=== PATIENT | female | born 1975 | race Caucasian/White ===

== ENCOUNTER → 2019-05-27 09:13 | Outpatient (CLI) | payer OTHER, SELFPAY ==
--- NOTE | ~2019-05-27 | DEXA_ITS ---
Bone Density Report Name: Chuyita Shepard Age: 44 Sex: Female Ethnicity: White Date of : 1975 Indication: Depo-provera exterminator termite therapy Referring Provider: FLOR EVANGELISTA Study: Bone densitometry was performed. Exam Date: May 27, 2019 Accession number: [id number] Bone Density: Region BMD T-score Z-score Classification AP Spine (L1-L4) 0.861 -1.7 -1.2 Osteopenia Femoral Neck (Left) 0.713 -1.2 -0.8 Osteopenia Total Hip (Left) 0.793 -1.2 -0.9 Osteopenia Femoral Neck (Right) 0.727 -1.1 -0.7 Osteopenia Total Hip (Right) 0.782 -1.3 -1.0 Osteopenia Total Hip Mean 0.788 -1.3 -1.0 Osteopenia World Health Organization criteria for BMD impression classify patients as: Normal (T-score at or above -1.0), Osteopenia (T-score between -1.0 and -2.5), or Osteoporosis (T-score at or below -2.5). 10-year Fracture Risk: FRAX not reported because: Premenopausal woman Clinical Information Provided by Patient: Has used the following medications: Vitamin D, Calcium, DEPO Patient maximum height was 62 Drinks caffeinated beverages Onset of menses at age 11 Premenopausal Number of children 1 Missed period for more than 6 months in a row Impression: The patient's bone mass is within expected range for age, gender and ethnicity. Discussion: BONE DENSITY IS WITHIN EXPECTED LIMITS FOR AGE, SEX AND RACE. Bone density is within expected limits for age, sex and race at all sites measured. The patient should follow a healthful lifestyle (good nutrition with adequate calcium and vitamin D, and appropriate weight-bearing exercise). Follow-Up: Consider repeating this study in 2 to 3 years to reassess this patient's status, or sooner if there is some new clinical indication. Reported by: [facility] on 05/27/2019 9:43:00 AM. Reviewed, dictated and finalized at location AMarianne MELENDEZ
== END ==
PROVIDERS: PCP Family Medicine; Visit Provider Family Medicine
DX: Z51.81 Encounter for therapeutic drug level monitoring (principal); Z79.3 Long term (current) use of hormonal contraceptives; M85.88 Other specified disorders of bone density and structure, other site; M85.852 Other specified disorders of bone density and structure, left thigh; M85.851 Other specified disorders of bone density and structure, right thigh
CPT/HCPCS: 77080

== ENCOUNTER → 2020-06-19 09:35 | Outpatient (CLI) | payer OTHER, SELFPAY ==
--- NOTE | ~2020-06-19 | XR_ITS ---
EXAMINATION: XR abdomen/kub 1V EXAM DATE: 06/19/2020 09:51 INDICATION: R31.9 - Hematuria, unspecified. TECHNIQUE: Frontal projection of the upper abdomen, frontal projection lower abdomen/pelvis for inter pretation. There is no prior study for comparison. FINDINGS: There is expected amount of colonic stool and gas. No small bowel dilation, nonobstructiv e bowel gas pattern. There are no suspicious calcifications identified. There is no organomegaly suspected. There is minimal lumbar levoscoliosis. There is IUD projecting over the central aspect o f the pelvis. IMPRESSION: No suspicious calcifications. Reviewed, dictated and finalized at location A.
== END ==
PROVIDERS: PCP Family Medicine; Visit Provider Family Medicine
DX: R31.9 Hematuria, unspecified (principal)
CPT/HCPCS: 74018

== ENCOUNTER 2020-07-15 12:26 | Emergency (ER) | payer OTHER, SELFPAY ==
--- NOTE | ~2020-07-15 | XR_ITS ---
EXAMINATION: XR abdomen/kub 1V EXAM DATE: 07/15/2020 13:03 INDICATION: PAIN midline lower abd; hematuria. TECHNIQUE: Frontal projection of the upper abdomen, frontal projection lower abdomen/pelvis for inter pretation. Comparison is made to prior examination from 06/19/2020. FINDINGS: There is expected amount of colonic stool and gas. No small bowel dilation, nonobstructiv e bowel gas pattern. There are no suspicious calcifications identified, pelvic calcifications are u nchanged and likely phleboliths. There is no organomegaly suspected. The bones are unremarkable. There is IUD projecting over the central aspect of the pelvis. IMPRESSION: Unremarkable abdomen x-ray exam. Reviewed, dictated and finalized at location A.
--- NOTE | 2020-07-15 12:29 | ED.GENADULT ---
HPI - General Adult General Chief complaint: Urogenital-Female Stated complaint: unable to urinate/side pain/nausea Time Seen by Provider: 07/15/20 12:29 Source: patient Mode of arrival: ambulatory Limitations: no limitations History of Present Illness HPI narrative: 45-year-old female patient presents to the [facility] with complaints of urinary symptoms. Patient states about 3 3 weeks ago she had some blood in her urine and went and saw her primary doctor. Patient states at that time they did a culture which was negative and they did a KUB which did not show anything but the patient was referred to the urologist. Patient states that she has not seen the urologist yet she is waiting on a call back for an appointment time. Patient states she again is having some lower abdominal pain especially towards the left side and left flank pain. Patient states she feels like she has to go the bathroom but cannot go to the bathroom. Patient denies any fevers, body aches or chills. Related Data Allergies Allergy/AdvReac Type Severity Reaction Status Date / Time moxifloxacin [From Avelox] Allergy Unknown Difficulty Verified 07/15/20 12:35 Breathing Review of Systems Review of Systems: Narrative: CONSTITUTIONAL: Denies fever, chills, or sweats. EYES: Denies visual changes, redness, or discharge. ENT: Denies rhinorrhea, congestion, sore throat, or otalgia. CARDIOVASCULAR: Denies chest pain, palpitations, or edema. RESPIRATORY: Denies cough or dyspnea. GASTROINTESTINAL: Positive lower abdominal pain, nausea, denies vomiting, or diarrhea. GENITOURINARY: Positive dysuria with hematuria. SKIN: Denies rash or itching. MUSCULOSKELETAL: Denies back pain, joint pain, or myalgia. NEUROLOGIC: Denies headache, numbness, or weakness. PSYCHIATRIC: Denies anxiety or depression. [facility] Past Medical History Medical History (Updated 07/15/20 @ 13:18 by LAMONT Sweeney) Elevated blood pressure reading Migraine Family History Family History Other Cerebrovascular accident Diabetes mellitus Hyperlipidemia Hypertension Lung cancer Skin cancer Social History Social History Alcohol intake: never Comments At the time of my signature I agree with nursing past medical history, surgical, social, and family history. There is no relevant family history pertinent to the presenting complaint. Exam Narrative: Exam Narrative: GENERAL: Well-appearing, well-nourished, and in no acute distress. HEAD: Normocephalic, atraumatic. EYES: PERRLA and EOMI. ENT: Nares clear, no rhinorrhea or epistaxis. Mucous membranes moist. NECK: Supple. No lymphadenopathy CHEST: Clear to auscultation. No respiratory distress. HEART: Regular rate and rhythm. No murmur heard. Normal peripheral pulses. ABDOMEN: Soft, flat, nondistended. No guarding, rebound tenderness, or rigid. No pulsatilla masses. Bowel sounds present in all four quadrants. No organomegaly. Negative Wilson?s sign. No periumbicial tenderness. No Supra public tenderness or distension. Good femoral pulses bilaterally. No hernia noted. No scars or surface trauma. No CVA tenderness on percussion EXTREMITIES: Normal range of motion. No edema. SKIN: Warm, dry, no rash. NEURO: No focal deficits. Alert and oriented x3. Course Reevaluation(s) Reevaluation #1: Reevaluated patient after her x-ray had resulted. Discussed with her that the x-ray did not show anything obvious today however since she has been having issues with this hematuria for a while now and now coming in with more pain to the left flank I think that we need to send her to the ER to rule out kidney stones. Patient agrees with this plan of care and requesting to go to [facility] for further evaluation. Date: 07/15/20 Time: 13:11 Vital Signs Vital signs: Vital Signs Temperature 37.2 C 07/15/20 12:32 Pulse Rate 112 H 07/15/20 12:
[2020-07-15 12:32] VITALS: BP 138/84; PULSE 112; RESP 16; TEMP 37.2; O2SAT 100
== END 2020-07-15 13:29 | disposition short-term general hospital (02) ==
PROVIDERS: Emergency Provider Nurse Practitioner Family; PCP Family Medicine
DX: R10.9 Unspecified abdominal pain (principal); R31.0 Gross hematuria; I10 Essential (primary) hypertension
CPT/HCPCS: 74018; 81003; 81025; 99213; G0463

== ENCOUNTER 2020-07-15 14:02 | Emergency (ER) | payer OTHER, SELFPAY ==
--- NOTE | ~2020-07-15 | CT_ITS ---
EXAMINATION: CT abdomen pelvis wo con DATE: 07/15/2020 17:38 INDICATION: Lower abdominal pain, hematuria TECHNIQUE: Computed tomography (CT) of the abdomen and pelvis was performed without intravenous contr ast. The dose-length product (DLP) was 848.77 mGy-cm. Automated exposure control and iterative recons truction technique were employed. COMPARISON: None FINDINGS: Minimal dependent atelectasis is present in the lung bases. The heart size is normal. There is a 3.5 x 2.9 cm hypoattenuating lesion in the left hepatic lobe. The spleen, pancreas, gallbladder , and adrenal glands are normal. There is an 8 mm stone in the left distal ureter which causes modera te left hydroureteronephrosis. A 2 mm nonobstructing stone is present in the right kidney. No patholo gically enlarged abdominal or pelvic lymph nodes are identified. There is no free intraperitoneal gas or evidence of bowel obstruction. The appendix is normal. An IUD is present in the uterus in expecte d position. IMPRESSION: 1. 8 mm stone in the distal left ureter causing moderate hydroureteronephrosis. Stone is retrospectiv brunilda identified on the abdominal radiograph from earlier today. 2. Indeterminate lesion in the left hepatic lobe. Finding is likely benign in the absence of known ma lignancy however, follow-up by MRI without and with contrast is recommended. Reviewed, dictated and finalized at location A. IMPRESSION: 1. 8 mm stone in the distal left ureter causing moderate hydroureteronephrosis. Stone is retrospectively identified on the abdominal radiograph from earlier t rach. 2. Indeterminate lesion in the left hepatic lobe. Finding is likely benign in t he absence of known malignancy however, follow-up by MRI without and with contr ast is recommended.
[2020-07-15 14:30] VITALS: BP 144/83; PULSE 108; RESP 17; TEMP 36.8; O2SAT 100
[2020-07-15 14:45] LABS: Basophils Absolute Auto 0.1 K/mm3 (0.0-0.1); Basophils Percent Auto 0.6 % (0.2-1.2); Eosinophils Percent Auto 0.2 % (0-4.4); Hemoglobin 15.1 g/dL (12.0-15.0); Immature Granulocyte Absolute 0.02 K/mm3 (0.00-0.031); Immature Granulocyte Percent A 0.2 % (0-0.5); Lymphocytes Absolute Auto 1.73 K/mm3 (0.9-3.2); Lymphocytes Percent Auto 17.6 % (18.3-44.2); Mean Corpuscular HGB Conc 33.6 g/dl (32-36); Mean Corpuscular Hemoglobin 29.3 pg (26-34); Mean Corpuscular Volume 87.4 fl (80-100); Mean Platelet Volume 9.3 fl (7.4-10.4); Monocytes Absolute Auto 0.4 K/mm3 (0.1-0.6); Monocytes Percent Auto 4.4 % (2.6-8.5); Neutrophils Absolute Auto 7.6 K/mm3 (1.3-6.7); Platelet Count Result 334 k/mm3 (150-375); Red Blood Count 5.15 M/mm3 (4.2-5.4); Red Cell Distribution Width 13.2 % (11.5-14.5); White Blood Count 9.8 K/mm3 (4.5-10.0)
[2020-07-15 14:57] LABS: Alanine Aminotransferase 25 U/L (4-35); Albumin Level 4.8 g/dL (3.5-5.1); Alkaline Phosphatase 97 U/L (38-126); Anion Gap 7 mmol/L (8-16); Aspartate Amino Transferase 27 U/L (14-36); Bilirubin,Total 0.8 mg/dL (0.2-1.3); Blood Urea Nitrogen 20 mg/dL (7-17); Calcium 9.8 mg/dL (8.4-10.2); Carbon Dioxide 29 mmol/L (22-30); Chloride 104 mmol/L (98-107); Estimated CRCL calculation 71 ml/min; Estimated Glomerular Filt Rate > 60; Glucose 114 mg/dL (65-105); Lipase 50 U/L (23-300); Potassium 4.1 mmol/L (3.4-5.0); Sodium 140 mmol/L (137-145)
--- NOTE | 2020-07-15 16:53 | ED.ABDPAIN ---
HPI - Abdominal Pain General Chief Complaint: Abdominal Pain Stated Complaint: low abd pain, poss kidney stone Time Seen by Provider: 07/15/20 16:40 Source: patient Mode of arrival: ambulatory Limitations: no limitations History of Present Illness HPI narrative: 45 year old female who presents for evaluation of lower abdominal pain. She reports 3 weeks ago she had hematuria. She was evaluated by her PCP and she was referred to urology. She has not made an appointment with urology yet. She states last night she developed lower abdominal pressure pain and pain when she urinated. She reports having urinary hesitancy. Today she developed left lower abdominal pain today that she describes as chart. She has not seen gross hematuria since last week. She was evaluated at [facility] today and she reports that she had microscopic hematuria . She reports her pain is 2/10. Quality: sharp Exacerbating factors: nothing Relieving factors: nothing Associated symptoms: nausea Related Data Allergies Allergy/AdvReac Type Severity Reaction Status Date / Time moxifloxacin [From Avelox] Allergy Unknown Difficulty Verified 07/15/20 14:32 Breathing Review of Systems Review of Systems: All systems reviewed & are unremarkable except as noted in HPI and below Constitutional: Constitutional: Denies chills and Denies fever(s) Cardiovascular: Cardiovascular: Denies chest pain Respiratory: Respiratory: Denies dyspnea Gastrointestinal: Gastrointestinal: Reports abdominal pain, Denies constipation, Denies diarrhea, Reports nausea and Denies vomiting Genitourinary: Genitourinary: Reports hematuria, Reports nocturia, Reports urinary hesitancy and Reports urinary urgency Musculoskeletal: Musculoskeletal: Denies back pain [facility] Past Medical History Medical History (Updated 07/15/20 @ 18:57 by Lisy Dan MD) Elevated blood pressure reading Migraine Surgical History Surgical History (Updated 07/15/20 @ 16:54 by Lisy Dan MD) No pertinent past surgical history Family History Family History Other Cerebrovascular accident Diabetes mellitus Hyperlipidemia Hypertension Lung cancer Skin cancer Social History Social History Alcohol intake: never Gender identity (if verbalized by the patient): Female Exam Const: General: no acute distress and alert Orientation/consciousness: patient oriented x3 Eyes: EOM: EOMs intact bilaterally Resp: Effort & Inspection: normal respiratory effort and no retractions Auscultation: clear to auscultation bilaterally GI: GI Palp: Yes Soft to palpation, No Tenderness to palpation present (GI) and No Guarding due to palpation present (GI) Auscultation: normal bowel sounds Back/Spine/Pelvis: Back: no CVA tenderness Skin: General skin exam: normal color Rashes: no rashes Neuro: General: patient oriented x3, moves all extremities and CN's II-XI intact bilaterally Psych: Mental Status: mental status grossly normal Affect: normal affect Course Reevaluation(s) Reevaluation #1: Patient states she does not have pain at the current time. I discussed CT findings and plan with discharge and follow up with urology. She is agreeable with plan Date: 07/15/20 Time: 18:54 Consultations Consultation #1: I discussed case with Dr. Cook of urology . He reviewed patient Ct and chart. He agrees patient can follow up as outpatient with flomax and pain medication. Pain should not take NSAIDs if possible. Date: 07/15/20 Time: 18:54 Vital Signs Vital signs: Vital Signs Temperature 98.2 F 07/15/20 14:30 Pulse Rate 108 H 07/15/20 14:30 Respiratory Rate 17 07/15/20 14:30 Blood Pressure 144/83 H 07/15/20 14:30 Pulse Oximetry 100 07/15/20 14:30 Temperature 98.2 F 07/15/20 14:30 Pulse Rate 90 07/15/20 19:19 Respiratory Rate 20 07/15/20 19:19 Bl
[2020-07-15 16:57] LABS: Add Urine Microscopic? YES; Appearance Urine Clear (Clear); Bilirubin Urine Negative (Negative); Blood Urine 3+ (Negative); Color Urine Straw (Yellow); Glucose Urine UA Negative (Negative); Ketones Urine Negative (Negative); Leukocyte Esterase Ur Negative LEU/UL (Negative); Nitrate Urine Negative (Negative); Protein Urine 1+ mg/dL (Negative); Specific Grav Ur 1.006 (1.001-1.035); Squamous Epithelial Cell Urine Rare /hpf (Few); Urobilinogen Urine Negative mg/dL (<2.0); WBC Urine 0-3 /hpf
[2020-07-15 17:11] VITALS: BP 147/82; PULSE 105; RESP 20; O2SAT 100
[2020-07-15 18:25] VITALS: BP 124/83; PULSE 93; RESP 20; O2SAT 100
[2020-07-15 19:04] VITALS: BP 122/88; PULSE 90; RESP 20; O2SAT 100
[2020-07-15] MEDS: TAMSULOSIN HCL 0.4 MG CAPSULE PO (19:16)
[2020-07-15 19:19] VITALS: BP 122/88; PULSE 90; RESP 20; O2SAT 100
== END 2020-07-15 19:21 | disposition home or self-care (01) ==
PROVIDERS: Emergency Medicine; Emergency Provider General Practice; PCP Family Medicine
DX: N13.2 Hydronephrosis with renal and ureteral calculous obstruction (principal)
CPT/HCPCS: 36415; 74018; 74176; 80053; 81001; 81003; 81025; 83690; 85025; 99284; A9270

== ENCOUNTER 2020-07-21 01:26 | Day surgery (SDC) | payer OTHER, SELFPAY ==
[2020-07-20 16:07] VITALS: BMI 35.4
[2020-07-21] VITALS (8 sets, daily range): BP systolic 106–132; BP diastolic 58–99; PULSE 74–92; RESP 10–20; TEMP 36.4–36.9; O2SAT 98–100
--- NOTE | ~2020-07-21 | XR_ITS ---
EXAMINATION: XR retrograde pyelo w/stent LT EXAM DATE: 07/21/2020 12:23 INDICATION: Left-sided retrograde, stent placement. TECHNIQUE: Fluoroscopy used during XR retrograde pyelo w/stent LT performed by Dr. Vasile browning MD. The radiologist Hugo Vigil M.D. dictating this report of the image(s) available was not pr esent for the procedure. Total fluoroscopic time of 15 seconds. The DAP for this procedure was 180 r adcm2. A total of 8 images obtained for the exam. FINDINGS: Left ureter was cannulated, injected. There is mild to moderate left-sided hydroureteronep hrosis. A double-J ureteral stent was positioned. There is IUD projecting over the central aspect of the pelvis. Correlate with procedure note. IMPRESSION: Mild to moderate left hydroureteronephrosis. Stent in position. Reviewed, dictated and finalized at location A.
--- NOTE | 2020-07-21 10:54 | WPDANESEPPF ---
Anes - Initial Pre Proc Eval Procedure: Operation Date: 07/21/20 12:15 Proposed Procedures p Cystoscopy, Left Ureteroscopy, Left Retrograde Pyelogram, Left Stone Extraction, possible Left Stent Placement - Vasile Marr MD s Possible Holmium Laser Procedure - Vasile Marr MD Date/Time: 07/21/20 10:54 Surgeon: Vasile Marr MD Pre Op Diagnosis: Left ureteral stone Patient Data Age: 45 Gender: F Height: 5 ft 3 in Weight: 90.9 kg Allergies Allergy/AdvReac Type Severity Reaction Status Date / Time moxifloxacin [From Avelox] Allergy Severe Difficulty Verified 07/21/20 10:34 Breathing Home Medications Medication Instructions Recorded Confirmed Type lisinopril 10 mg tablet 10 mg PO DAILY #30 tablet 04/05/20 07/21/20 Rx hydrocodone-acetaminophen 1 tablet PO Q6H PRN #14 tablet 07/15/20 07/21/20 Rx ondansetron HCl [Zofran] 4 mg PO Q6H PRN #10 tablet 07/15/20 07/21/20 Rx tamsulosin [Flomax] 0.4 mg PO DAILY #10 cap 07/15/20 07/21/20 Rx metoprolol succinate 25 mg PO HS 07/20/20 07/21/20 History Patient hx anesthesia problems: none Family hx anesthesia problems: none PMFSH Past Medical History Medical History Elevated blood pressure reading Migraine Surgical History Surgical History No pertinent past surgical history Family History Family History Other Cerebrovascular accident Diabetes mellitus Hyperlipidemia Hypertension Lung cancer Skin cancer Social History Social History Smoking status: Never smoker Alcohol intake: never Substance use: never Substance use type: does not use Living arrangements: with family Gender identity (if verbalized by the patient): Female Spiritual care concerns: No Anes - Eval Final PreProcedure Day of Procedure 07/21/20 10:54 Patient weight: obese Heart: regular rate and rhythm Lungs: clear to auscultation Airway: Mallampati scale class II Neurological: alert and oriented Last oral intake: >/= 8 hours ASA classification: II Emergent: no Anesthetic plan: proceed Anesthesia type and monitoring: general LMA and standard monitoring Informed Consent: The patient's anesthetic plan and its attendant risks and benefits were discussed with the patient/family/POA. Questions were solicited and answers provided to the satisfaction of the patient/family/POA.
[2020-07-21] MEDS: LACTATED RINGERS 1,000 ML 30 ML IV CONT ×2 (11:02→12:28)
--- NOTE | 2020-07-21 11:37 | WPDHPUPDATE1 ---
History and Physical Update Update Date/Time: 07/21/20 11:37 History and Physical has been reviewed, including an updated exam of the patient. There are NO changes in the patient's condition. Risks, benefits, and alternatives have been discussed and questions answered. Patient agrees to proceed with procedure. Proceed with cysto left retrograde pyelogram left ureteroscopy with stone extraction, possible holmium laser, left stent placement.
[2020-07-21] MEDS: ceFAZolin 2 GM/D5W 50 ML 2 GM/50 ML BAG IVPB (11:52)
[2020-07-21] MEDS: KETOROLAC 30 MG/ML VIAL (*BKC) 15 MG IV PUSH (12:16)
[2020-07-21] MEDS: LIDOCAINE HCL 2% GEL UROJET 10 ML PKG MUCOUS MEM (12:22)
--- NOTE | 2020-07-21 12:22 | P.OP_ITS ---
Procedure Note - Detailed Date of procedure: 07/21/20 Pre-op diagnosis: Left ureteral stone Post-op diagnosis: same Procedure performed: Cystoscopy, left retrograde pyelogram, left ureteroscopy with holmium laser, stone extraction, left ureteral stent placement 4.8 [place] contour Description of procedure: Patient is taken the operative suite and correctly identified. Once anesthesia was obtained she was placed in dorsal lithotomy position and prepped and draped usual sterile fashion. Twenty-two [place] scope was inserted in the bladder. There is no tumors noted. Left orifice was cannulated with a guidewire. The orifice was dilated with an 8/10 dilator. Rigid ureteral scope was then inserted into the orifice. The stone was visualized in the intramural ureter. It was lodged. Two hundred seventy-three micron fiber was then used to fragment the stone in multiple small pieces. Some of these were sent for analysis. Reinspection revealed no residual stones in the ureter. Pyelogram was then performed to confirm placement of the stent. 4.8 [place] contour stent was then placed with the proximal end in the renal pelvis distal in the bladder. Bladder was drained. 2% viscous lidocaine was inserted to urethra and patient is taken recovery stable condition. She will follow up in about a week's time for stent removal. Anesthesia: GLMA Surgeon: Vasile Marr MD Drains: Yes Packing: No Pathology: yes Complications: No immediate complications Condition: stable Disposition: PACU
--- NOTE | 2020-07-21 12:37 | SUR.OPER ---
left ureteral stent 4.8fr contour lot [id number], exp 2023-04-27.
== END 2020-07-21 14:05 | disposition home or self-care (01) ==
PROVIDERS: PCP Family Medicine; Visit Provider Urology
PROC: (CPT 52352; principal; 2020-07-21 12:15)
PROC: (CPT 52356; 2020-07-21 12:15)
DX: N20.1 Calculus of ureter (principal); E66.9 Obesity, unspecified; Z68.35 Body mass index [BMI] 35.0-35.9, adult; I10 Essential (primary) hypertension
CPT/HCPCS: 52356; 74420; 82365; 88300; A9270; C1769; C2617; J0131; J0690; J1100; J1885; J2250; J2590; J2704; J3010; J7120; Q9966

== ENCOUNTER → 2020-08-11 13:18 | Outpatient (CLI) | payer OTHER, SELFPAY ==
--- NOTE | ~2020-08-11 | US_ITS ---
EXAMINATION: US transvaginal DATE: 08/11/2020 13:39 INDICATION: Missing intrauterine device strings. TECHNIQUE: Multiple transvaginal sonographic images of the pelvis were obtained. COMPARISON: CT abdomen and pelvis 07/15/2020 FINDINGS: The uterus measures 5.0 x 2.4 x 3.5 cm. There is no free fluid in the pelvis. The endometrial complex measures 6 mm in thickness. There is an intrauterine device in expected position. The right ovary is not visualized. The left ovary measures 2.2 x 1.9 x 2.3 cm. IMPRESSION: 1. Intrauterine device in expected position. Reviewed, dictated and finalized at location A.
== END ==
PROVIDERS: Visit Provider Nurse Practitioner
DX: Z30.431 Encounter for routine checking of intrauterine contraceptive device (principal)
CPT/HCPCS: 76830

== ENCOUNTER → 2020-08-21 15:16 | Outpatient (CLI) | payer OTHER, SELFPAY ==
--- NOTE | ~2020-08-21 | MM_ITS ---
EXAMINATION: MM screening [facility] BI w sean HISTORY: Screening TECHNIQUE: Craniocaudal and mediolateral oblique 3-D tomosynthesis images were obtained and synthetic 2-D images were generated. CAD analysis was submitted and interpreted. COMPARISON: Comparison to multiple prior studies sequentially, with oldest reviewed study dated 06/2013. BREAST PARENCHYMAL COMPOSITION: There are scattered areas of fibroglandular density. FINDINGS: There is no evidence of suspicious mass, calcification, or architectural distortion to sugg est malignancy in either breast. There has been no suspicious interval change. IMPRESSION: 1. No mammographic evidence of malignancy. 2. Recommend routine screening mammography in one year. BI-RADS Category 1: Negative Reviewed, dictated and finalized at location A.
== END ==
PROVIDERS: Visit Provider Nurse Practitioner
DX: Z12.31 Encounter for screening mammogram for malignant neoplasm of breast (principal)
CPT/HCPCS: 77063; 77067

== ENCOUNTER → 2020-12-14 02:38 | Outpatient (CLI) | payer OTHER, SELFPAY ==
[2020-12-15 18:58] LABS: SARS-CoV-2 RNA PCR Negative
== END ==
PROVIDERS: PCP Family Medicine; Visit Provider Physician Assistant
DX: R05 Cough (principal); Z20.822 Contact with and (suspected) exposure to COVID-19
CPT/HCPCS: C9803; U0003; U0005

== ENCOUNTER → 2022-01-30 16:24 | Outpatient (CLI) | payer OTHER, SELFPAY ==
--- NOTE | ~2022-01-30 | MM_ITS ---
EXAMINATION: MM screening [facility] BI w sean HISTORY: Screening mammogram TECHNIQUE: Craniocaudal and mediolateral oblique 3-D tomosynthesis images were obtained and synthetic 2-D images were generated. CAD analysis was submitted and interpreted. COMPARISON: 08/21/2020, 11/18/2018, 08/26/2017 BREAST PARENCHYMAL COMPOSITION: There are scattered areas of fibroglandular density. FINDINGS: No suspicious mass, calcification, or architectural distortion are identified in either milly ast to suggest malignancy. There has been no suspicious interval change. IMPRESSION: 1. No mammographic evidence of malignancy. 2. Recommend routine screening mammography in one year. BI-RADS Category 1: Negative Reviewed, dictated and finalized at location A.
== END ==
PROVIDERS: PCP Family Medicine; Visit Provider Obstetrics & Gynecology Gynecology
DX: Z12.31 Encounter for screening mammogram for malignant neoplasm of breast (principal)
CPT/HCPCS: 77063; 77067

== ENCOUNTER 2022-07-22 08:11 | Outpatient (NON) | payer OTHER, SELFPAY | END 2022-07-22 08:12 | disposition home or self-care (01) | LOC: ANHLAB 07-23 08:12 | PROVIDERS: PCP Family Medicine; Visit Provider Internal Medicine Gastroenterology | DX: Z12.11 Encounter for screening for malignant neoplasm of colon (principal); K63.5 Polyp of colon | CPT/HCPCS: 88305 ==

== ENCOUNTER 2022-07-22 09:21 | Day surgery (SDC) | payer OTHER, SELFPAY ==
[2022-06-13 14:22] VITALS: BMI 36.6
[2022-07-11 12:19] VITALS: BMI 36.3
[2022-07-22 10:15] VITALS: BP 140/93; PULSE 92; RESP 20; TEMP 37.5; O2SAT 100
--- NOTE | 2022-07-22 10:22 | WPDANESEPPF ---
Anes - Initial Pre Proc Eval Procedure: Operation Date: 07/22/22 11:30 Proposed Procedures p Screening Colonoscopy - Chandrakant Brown MD Date/Time: 07/22/22 10:22 Surgeon: Chandrakant Brown MD Pre Op Diagnosis: Neoplasm Screening Patient Data Age: 47 Gender: F Height: 1.6 m Weight: 92.3 kg Last Vital Signs Temp 37.5 C 07/22/22 10:15 Pulse 92 07/22/22 10:15 Resp 20 07/22/22 10:15 BP 140/93 H 07/22/22 10:15 Pulse Ox 100 07/22/22 10:15 O2 Del Method Room Air 07/22/22 10:15 Allergies Allergy/AdvReac Type Severity Reaction Status Date / Time moxifloxacin [From Avelox] Allergy Severe Difficulty Verified 07/22/22 10:17 Breathing Home Medications Medication Instructions Recorded Confirmed Type cholecalciferol (vitamin D3) 1,250 1,250 mcg PO WEEKLY 01/21/22 07/11/22 History mcg (50,000 unit) capsule lisinopril 10 mg tablet 10 mg PO DAILY #90 tabs 02/25/22 07/11/22 Rx metoprolol succinate 25 mg 25 mg PO HS #90 tabs 02/25/22 07/11/22 Rx tablet,extended release 24 hr Patient hx anesthesia problems: none Family hx anesthesia problems: none Results Review: All pre-operative results and documents have been reviewed as part of the pre-operative evaluation. [facility] Past Medical History Medical History Elevated blood pressure reading History of kidney stones Migraine Nephrolithiasis Surgical History Surgical History (Updated 07/22/22 @ 10:23 by Gavin Weiner MD) Hx of cystoscopy Family History Family History Other Cerebrovascular accident Diabetes mellitus Hyperlipidemia Hypertension Lung cancer Skin cancer Social History Social History Smoking status: Never smoker Second hand tobacco smoke exposure: No Alcohol intake: never Substance use: never Substance use type: does not use Living arrangements: with family Gender identity (if verbalized by the patient): Female Spiritual care concerns: No Anes - Eval Final PreProcedure Day of Procedure 07/22/22 10:22 Patient weight: obese Heart: regular rate and rhythm Lungs: clear to auscultation Airway: Mallampati scale class II Neurological: alert and oriented Last oral intake: >/= 8 hours ASA classification: II Emergent: no Anesthetic plan: proceed Anesthesia type and monitoring: general GIVS and standard monitoring Results Review: All pre-operative results and documents have been reviewed as part of the pre-operative evaluation. Informed Consent: The patient's anesthetic plan and its attendant risks and benefits were discussed with the patient/family/POA. Questions were solicited and answers provided to the satisfaction of the patient/family/POA.
[2022-07-22] MEDS: LACTATED RINGERS 1,000 ML 150 ML IV CONT (10:31)
--- NOTE | 2022-07-22 10:48 | PM.HPGS ---
History of Present Illness History of Present Illness Consent: Risks, benefits, and alternatives have been discussed and questions answered. Patient agrees to proceed with procedure. Chief complaint: Neoplasm Screening Narrative: Chuyita Shepard is a 47 year old female here for first screening colonoscopy Review of Systems Constitutional: Constitutional: Denies headache(s) and Denies weakness Eyes: Eyes: Denies blurry vision ENT: Reports Normal hearing present, Denies headache(s) and Denies neck pain Cardiovascular: Cardiovascular: Denies chest pain and Denies dyspnea Respiratory: Respiratory: Denies dyspnea Gastrointestinal: Gastrointestinal: Reports no additional gastrointestinal complaints Genitourinary: Genitourinary: Denies dysuria Musculoskeletal: Musculoskeletal: Denies neck pain Integumentary/Breasts: Skin/Breast: Denies dry skin Neurologic: Reports Normal hearing present, Denies headache(s) and Denies weakness Psychiatric: Psychiatric: Denies anxiety Endocrine: Endocrine: Denies change in body appearance Hematologic/Lymphatic: Hematologic/Lymphatic: Denies easy bleeding Allergic/Immunologic: Allergic/Immunologic: Denies urticaria PMFSH Past Medical History Medical History (Updated 07/22/22 @ 10:48 by Chandrakant Brown MD) Colon cancer screening Elevated blood pressure reading History of kidney stones Migraine Nephrolithiasis Surgical History Surgical History (Updated 07/22/22 @ 10:23 by Gavin Weiner MD) Hx of cystoscopy Family History Family History Other Cerebrovascular accident Diabetes mellitus Hyperlipidemia Hypertension Lung cancer Skin cancer Social History Social History Smoking status: Never smoker Second hand tobacco smoke exposure: No Alcohol intake: never Substance use: never Substance use type: does not use Living arrangements: with family Gender identity (if verbalized by the patient): Female Spiritual care concerns: No Meds Home Medications and Allergies Home Medications Medication Instructions Recorded Confirmed Type cholecalciferol (vitamin D3) 1,250 1,250 mcg PO WEEKLY 01/21/22 07/22/22 History mcg (50,000 unit) capsule lisinopril 10 mg tablet 10 mg PO DAILY #90 tabs 02/25/22 07/22/22 Rx metoprolol succinate 25 mg 25 mg PO HS #90 tabs 02/25/22 07/22/22 Rx tablet,extended release 24 hr Allergies Allergy/AdvReac Type Severity Reaction Status Date / Time moxifloxacin [From Avelox] Allergy Severe Difficulty Verified 07/22/22 10:17 Breathing Vital Signs Vital Signs - 24 hr 07/22/22 10:15 Temperature 99.5 F Pulse Rate 92 Respiratory Rate 20 Blood Pressure 140/93 H Pulse Oximetry 100 Oxygen Delivery Room Air Exam Const: General: comfortable and no acute distress HENMT: Face/Nose/Sinus: Normal nares present Eyes: General: appearance normal, both eyes and all related structures Neck: Neck: no JVD Resp: Auscultation: clear to auscultation bilaterally Cardio: Rate: regular rate Rhythm: regular rhythm GI: Inspection: non-distended GI Palp: Yes Soft to palpation Skin: General skin exam: normal color Neuro: General: gait normal Speech: normal speech Extrem: General: normal to inspection Psych: Mental Status: mental status grossly normal Assessment and Plan Assessment and plan (1) Colon cancer screening: Code(s): Z12.11 - Encounter for screening for malignant neoplasm of colon Status: Acute Assessment and Plan: colonoscopy
[2022-07-22 11:19] VITALS: BP 101/78; PULSE 81; RESP 20; O2SAT 100
--- NOTE | 2022-07-22 11:23 | WPDANESPN ---
Anes - Prog Note Post-Op Date/Time: 07/22/22 11:23 Cardiovascular status: normal Respiratory status: normal Airway patency: baseline Mental status: baseline Post-Op hydration status: normal Vital Signs: Last Vital Signs Temp 37.5 C 07/22/22 10:15 Pulse 92 07/22/22 10:15 Resp 20 07/22/22 10:15 BP 140/93 H 07/22/22 10:15 Pulse Ox 100 07/22/22 10:15 O2 Del Method Room Air 07/22/22 10:15 Pain Score (VAS): 0/10 Patient Feedback: Patient satisfied with anesthetic care.
[2022-07-22 11:29] VITALS: BP 112/83; PULSE 64; RESP 20; O2SAT 97
[2022-07-22 11:45] VITALS: BP 111/62; PULSE 88; RESP 18; O2SAT 100
== END 2022-07-22 11:50 | disposition home or self-care (01) ==
PROVIDERS: PCP Family Medicine; Visit Provider Internal Medicine Gastroenterology
PROC: 0DJD8ZZ Inspection of Lower Intestinal Tract, Via Natural or Artificial Opening Endoscopic (ICD-10-PCS; CPT 45378; principal; 2022-07-22 11:30)
DX: Z12.11 Encounter for screening for malignant neoplasm of colon (principal)
CPT/HCPCS: 45385

== ENCOUNTER → 2023-05-16 07:13 | Outpatient (CLI) | payer OTHER, SELFPAY ==
--- NOTE | ~2023-05-16 | MM_ITS ---
EXAMINATION: MM screening [facility] BI w sean HISTORY: Screening mammogram TECHNIQUE: Craniocaudal and mediolateral oblique 3-D tomosynthesis images were obtained and synthetic 2-D images were generated. CAD analysis was submitted and interpreted. COMPARISON: 01/30/2022, 08/21/2020, 11/18/2018 bilateral screening mammogram examinations BREAST PARENCHYMAL COMPOSITION: There are scattered areas of fibroglandular density. FINDINGS: Stable mild fibroglandular asymmetry. There is no evidence of suspicious mass, calcificatio n, or architectural distortion to suggest malignancy in either breast. There has been no suspicious i nterval change. IMPRESSION: 1. No mammographic evidence of malignancy. 2. Recommend routine screening mammography in one year. BI-RADS Category 1: Negative Reviewed, dictated and finalized at location A. RITY SYSTEM ADMINISTRATOR
== END ==
PROVIDERS: PCP Nurse Practitioner; Visit Provider Nurse Practitioner
DX: Z12.31 Encounter for screening mammogram for malignant neoplasm of breast (principal)
CPT/HCPCS: 77063; 77067

== ENCOUNTER 2024-04-05 13:46 | Outpatient (CLI) | payer OTHER, SELFPAY ==
--- NOTE | ~2024-04-05 | US_ITS ---
Pelvic ultrasound. Clinical History: Displacement of IUD Technique: Realtime transabdominal scanning of the pelvis was performed. Color flow Doppler and Doppl er spectral analysis were performed. Findings: The uterus is anteverted. The endometrial stripe has a thickness of 3 mm. IUD appears to b e in satisfactory position. No focal mass is identified. Neither ovary seen. No adnexal mass seen. There is no evidence of free fluid in the cul de sac. Impression: IUD appears to be in satisfactory position. Reviewed, dictated and finalized at location M. TY BRAND INSPECTOR Impression: IUD appears to be in satisfactory position.
== END 2024-04-05 13:47 | disposition home or self-care (01) ==
LOC: MICIMG 13:47
PROVIDERS: PCP Family Medicine; Visit Provider Nurse Practitioner
DX: T83.32XA Displacement of intrauterine contraceptive device, initial encounter (principal); Y83.8 Other surgical procedures as the cause of abnormal reaction of the patient, or of later complication, without mention of misadventure at the time of the procedure
CPT/HCPCS: 76856

== ENCOUNTER 2024-08-23 15:06 | Outpatient (CLI) | payer OTHER, SELFPAY ==
--- NOTE | ~2024-08-23 | MM_ITS ---
EXAMINATION: MM screening [facility] w sean HISTORY: Screening TECHNIQUE: Craniocaudal and mediolateral oblique 3-D tomosynthesis images were obtained and synthetic 2-D images were generated. CAD analysis was submitted and interpreted. COMPARISON: Comparison to multiple prior studies sequentially, with oldest reviewed study dated 06/21. BREAST PARENCHYMAL COMPOSITION: Not dense: There are scattered areas of fibroglandular density. FINDINGS: There is no evidence of suspicious mass, calcification, or architectural distortion to sugg est malignancy in either breast. There has been no suspicious interval change. IMPRESSION: 1. No mammographic evidence of malignancy. 2. Recommend routine screening mammography in one year. BI-RADS Category 1: Negative Reviewed, dictated and finalized at location B.
== END 2024-08-23 15:07 | disposition home or self-care (01) ==
PROVIDERS: PCP Family Medicine; Visit Provider Nurse Practitioner
DX: Z12.31 Encounter for screening mammogram for malignant neoplasm of breast (principal)
CPT/HCPCS: 77063; 77067